=== PATIENT | female | born 1990 | race African-American/Black ===

== ENCOUNTER 2016-11-06 17:18 | Emergency (ER) | payer BC ==
[2016-11-06] MEDS ORDERED: KETOROLAC 30 MG/ML 1 ML VIAL IVP STA (18:20)
[2016-11-06] MEDS ORDERED: HYDROmorphone 1 MG/ML 1 ML SYRINGE IVP STA (18:20)
[2016-11-06] MEDS ORDERED: ONDANSETRON 4 MG/2 ML VIAL IVP STA (18:20)
[2016-11-06] MEDS ORDERED: SODIUM CHLORIDE 0.9% 1,000 ML IV STA (18:20)
--- NOTE | 2016-11-06 18:23 | ED ---
Abdominal Pain HPI - General Source: patient, RN notes reviewed Mode of arrival: wheelchair Limitations: no limitations <Coy Vee - Last Filed: 11/06/16 18:21> <Brown Bailey - Last Filed: 11/06/16 21:25> - General Chief Complaint: Abdominal Pain Stated Complaint: Abd Pain Time Seen by Provider: 11/06/16 18:17 - History of Present Illness Initial Comments: This a 25-year-old female presents emergency Department chief complaint right flank pain. Patient states she started with mid abdominal pain that started to move her right flank pain. She states she's been nauseated and vomiting. States nothing makes the pain feel better or worse. She states is constant pain. She has no history kidney stones. Patient had a right ovarian/tool mass removed in the past. Patient states that she's had no dysuria no hematuria. Patient last mental cycle 2 weeks ago no chance . Patient denies any medications taken for the pain. Patient denies any chest pain or shortness of breath. (Coy Vee) - Related Data Previous Rx's Medication Instructions Recorded Ondansetron Odt [Zofran ODT] 4 mg PO Q8HR PRN #20 tab 11/06/16 Allergies Allergy/AdvReac Type Severity Reaction Status Date / Time No Known Allergies Allergy Verified 11/06/16 19:15 Review of Systems ROS Other: All systems not noted in ROS Statement are negative. <Coy Vee - Last Filed: 11/06/16 18:21> ROS Other: All systems not noted in ROS Statement are negative. <Brown Bailey - Last Filed: 11/06/16 21:25> ROS Statement: Those systems with pertinent positive or pertinent negative responses have been documented in the HPI. Past Medical History Past Medical History: No Reported History History of Any Multi-Drug Resistant Organisms: None Reported Additional Past Surgical History / Comment(s): right fallopian tube removed Past Psychological History: No Psychological Hx Reported Smoking Status: Never smoker Past Alcohol Use History: Occasional Past Drug Use History: None Reported <Coy Vee - Last Filed: 11/06/16 18:21> General Exam Limitations: no limitations General appearance: alert, in no apparent distress Neck exam: Present: normal inspection, full ROM. Absent: tenderness, meningismus, lymphadenopathy Respiratory exam: Present: normal lung sounds bilaterally. Absent: respiratory distress, wheezes, rales, rhonchi, stridor Cardiovascular Exam: Present: regular rate, normal rhythm, normal heart sounds. Absent: systolic murmur, diastolic murmur, rubs, gallop, clicks GI/Abdominal exam: Present: soft, tenderness (Moderate right sided abdominal tenderness, mild epigastric and right flank tenderness), normal bowel sounds. Absent: distended, guarding, rebound, rigid Back exam: Present: CVA tenderness (R). Absent: CVA tenderness (L) Neurological exam: Present: alert, oriented X3, CN II-XII intact Skin exam: Present: warm, dry, intact, normal color. Absent: rash <Coy Vee - Last Filed: 11/06/16 18:21> Medical Decision Making <Coy Vee - Last Filed: 11/06/16 18:21> - Lab Data Result diagrams: 11/06/16 18:40 11/06/16 18:40 <Brown Bailey - Last Filed: 11/06/16 21:25> - Medical Decision Making Patient reexamined at this time and showing no signs of stress is resting comfortable in a stretcher. Patient's CAT scan is unremarkable for any evidence of appendicitis. There is some free fluid in the lower pelvis. No evidence of masses seen. Patient reexamined by myself and did have tenderness in the right upper quadrant. Admits to pain starting earlier today in the right side of the abdomen also right side of the back. No evidence for kidney stones. Ultrasound obtained of the right upper quadrant to rule out any evidence of cholecystitis. Normal common bile duct. No evidence of gallstones. Results were discussed with the patient. Patient advised close follow-up family doctor or GI over the next 1-2 days. Advised return if there is any fever. Advised to continue with nausea medicine at home. Patient and family Kyra bedside state understanding and agreement. (Brown Bailey) - Lab Data Lab Results 11/06/16 11/06/16 11/06/16 Range/Units 18:40 18:40 18:55 WBC 19.0 H (3.8-10.6) k/uL RBC 4.61 (3.80-5.40) m/uL Hgb 9.7 L (11.4-16.0) gm/dL Hct 32.4 L (34.0-46.0) % MCV 70.3 L (80.0-100.0) fL MCH 21.0 L (25.0-35.0) pg MCHC 29.9 L (31.0-37.0) g/dL RDW 17.4 H (11.5-15.5) % Plt Count 421 (150-450) k/uL Neutrophils % 92 % Lymphocytes % 3 % Monocytes % 4 % Eosinophils % 0 % Basophils % 0 % Neutrophils # 17.5 H (1.3-7.7) k/uL Lymphocytes # 0.6 L (1.0-4.8) k/uL Monocytes # 0.7 (0-1.0) k/uL Eosinophils # 0.1 (0-0.7) k/uL Basophils # 0.0 (0-0.2) k/uL Hypochromasia Marked Anisocytosis Slight Microcytosis Marked Sodium 137 (137-145) mmol/L Potassium 4.2 (3.5-5.1) mmol/L Chloride 105 (98-107) mmol/L Carbon Dioxide 22 (22-30) mmol/L Anion Gap 10 mmol/L BUN 12 (7-17) mg/dL Creatinine 0.85 (0.52-1.04) mg/dL Est GFR (MDRD) Af Amer >60 (>60 ml/min/1.73 sqM) Est GFR (MDRD) Non-Af >60 (>60 ml/min/1.73 sqM) Glucose 109 H (74-99) mg/dL Calcium 9.7 (8.4-10.2) mg/dL Total Bilirubin 0.7 (0.2-1.3) mg/dL AST 22 (14-36) U/L ALT 19 (9-52) U/L Alkaline Phosphatase 67 (38-126) U/L Total Protein 8.1 (6.3-8.2) g/dL Albumin 4.3 (3.5-5.0) g/dL Amylase 59 (30-110) U/L Lipase 37 (23-300) U/L Urine Color Urine Appearance (Clear) Urine pH (5.0-8.0) Ur Specific [place] (1.001-1.035) Urine Protein (Negative) Urine Glucose (UA) (Negative) Urine Ketones (Negative) Urine Blood (Negative) Urine Nitrite (Negative) Urine Bilirubin (Negative) Urine Urobilinogen (<2.0) mg/dL Ur Leukocyte Esterase (Negative) Urine HCG, Qual Not Detected (Not Detectd) 11/06/16 Range/Units 18:55 WBC (3.8-10.6) k/uL RBC (3.80-5.40) m/uL Hgb (11.4-16.0) gm/dL Hct (34.0-46.0) % MCV (80.0-100.0) fL MCH (25.0-35.0) pg MCHC (31.0-37.0) g/dL RDW (11.5-15.5) % Plt Count (150-450) k/uL Neutrophils % % Lymphocytes % % Monocytes % % Eosinophils % % Basophils % % Neutrophils # (1.3-7.7) k/uL Lymphocytes # (1.0-4.8) k/uL Monocytes # (0-1.0) k/uL Eosinophils # (0-0.7) k/uL Basophils # (0-0.2) k/uL Hypochromasia Anisocytosis Microcytosis Sodium (137-145) mmol/L Potassium (3.5-5.1) mmol/L Chloride (98-107) mmol/L Carbon Dioxide (22-30) mmol/L Anion Gap mmol/L BUN (7-17) mg/dL Creatinine (0.52-1.04) mg/dL Est GFR (MDRD) Af Amer (>60 ml/min/1.73 sqM) Est GFR (MDRD) Non-Af (>60 ml/min/1.73 sqM) Glucose (74-99) mg/dL Calcium (8.4-10.2) mg/dL Total Bilirubin (0.2-1.3) mg/dL AST (14-36) U/L ALT (9-52) U/L Alkaline Phosphatase (38-126) U/L Total Protein (6.3-8.2) g/dL Albumin (3.5-5.0) g/dL Amylase (30-110) U/L Lipase (23-300) U/L Urine Color Yellow Urine Appearance Clear (Clear) Urine pH 6.5 (5.0-8.0) Ur Specific [place] 1.016 (1.001-1.035) Urine Protein Negative (Negative) Urine Glucose (UA) Negative (Negative) Urine Ketones 2+ H (Negative) Urine Blood Negative (Negative) Urine Nitrite Negative (Negative) Urine Bilirubin Negative (Negative) Urine Urobilinogen <2.0 (<2.0) mg/dL Ur Leukocyte Esterase Negative (Negative) Urine HCG, Qual (Not Detectd) Disposition <Coy Vee - Last Filed: 11/06/16 18:21> Time of Disposition: 21:24 <Brown Bailey - Last Filed: 11/06/16 21:25> Clinical Impression: Abdominal pain Disposition: HOME SELF-CARE Condition: Good Instructions: Abdominal Pain (ED) Additional Instructions: Please use medication as discussed. Please follow-up with family doctor in the next 2 days of symptoms have not improved. Please return to emergency room if the symptoms increase or worsen or for any other concerns. Prescriptions: Ondansetron Odt [Zofran ODT] 4 mg PO Q8HR PRN #20 tab PRN Reason: Nausea Referrals: None,Stated [Primary Care Provider] - 1-2 days Ruma Chadwick MD [STAFF PHYSICIAN] - 1-2 days
[2016-11-06 19:06] LABS: Anisocytosis Slight; Basophils % (A) 0 %; CHCM 30.1; Eosinophils # (A) 0.1 k/uL (0-0.7); Eosinophils % (A) 0 %; HCT 32.4 % (34.0-46.0); HDW 3.19; HGB 9.7 gm/dL (11.4-16.0); Hypochromasia Marked; Luc # (Auto) 0.11; Luc % (Auto) 1; Lymphocytes # (A) 0.6 k/uL (1.0-4.8); Lymphocytes % (A) 3 %; MCHC 29.9 g/dL (31.0-37.0); MCV 70.3 fL (80.0-100.0); Mean Platelet Volume 6.2; Microcytosis Marked; Monocytes # (A) 0.7 k/uL (0-1.0); Monocytes % (A) 4 %; Neutrophils # (A) 17.5 k/uL (1.3-7.7); Neutrophils % (A) 92 %; RBC 4.61 m/uL (3.80-5.40); RDW 17.4 % (11.5-15.5); WBC (Perox) 20.62
[2016-11-06 19:12] LABS: ALT 19 U/L (9-52); AST 22 U/L (14-36); Alkaline Phosphatase 67 U/L (38-126); Amylase 59 U/L (30-110); Anion Gap 10 mmol/L; Blood Urea Nitrogen 12 mg/dL (7-17); Calcium 9.7 mg/dL (8.4-10.2); Carbon Dioxide 22 mmol/L (22-30); Chloride 105 mmol/L (98-107); Glucose 109 mg/dL (74-99); Non-African American GFR(MDRD) >60 (>60 ml/min/1.73 sqM); Potassium 4.2 mmol/L (3.5-5.1); Sodium 137 mmol/L (137-145); Total Bilirubin 0.7 mg/dL (0.2-1.3); Total Protein 8.1 g/dL (6.3-8.2)
[2016-11-06] MEDS ORDERED: RX INFO: IV CONTRAST WAS GIVEN 1 EACH MISC MISCELLANE PRN (19:17)
[2016-11-06 19:19] LABS: Appearance,Urine Clear (Clear); Bilirubin,Urine Negative (Negative); Glucose,Urine (UA) Negative (Negative); Ketones,Urine 2+ (Negative); Leukocyte Esterase,Urine Negative (Negative); Nitrite,Urine Negative (Negative); PH, Urine 6.5 (5.0-8.0); Protein,Urine Negative (Negative); Specific Gravity,Urine 1.016 (1.001-1.035); UA Billing (MACRO vs. MICRO) CHEM; Urobilinogen,Urine <2.0 mg/dL (<2.0)
--- NOTE | 2016-11-06 20:29 | CT ---
EXAMINATION TYPE: CT abdomen pelvis w con DATE OF EXAM: 11/06/2016 7:54 PM HISTORY: Right side abdominal pain with nausea and vomiting. CT DLP: 1704mGycm Automated Exposure Control for Dose Reduction was Utilized. CONTRAST: CT scan of the abdomen and pelvis is performed without oral but with IV Contrast, patient injected wi th 100 mL of Omnipaque 300. COMPARISON: CT abdomen and pelvis December 25, 2013 FINDINGS: LUNG BASES: Linear scarring right mid lung near diaphragm is redemonstrated. LIVER/GB: A few subcentimeter hypodense lesions scattered throughout the liver are too small to furth er characterize per presumed benign. PANCREAS: No significant abnormality is seen. SPLEEN: No significant abnormality is seen. ADRENALS: No significant abnormality is seen. 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 Visualization pass pro ximal ureter level is suboptimal to assess for complete duplication. Bladder is suboptimally distende d with bladder wall thickness upper limits of normal, a cystitis should be excluded clinically. BOWEL: Evaluation bowel is suboptimal secondary to lack of enteric contrast. No suspicious small or l arge bowel dilatation is seen. Appendix is not seen with certainty. UTERUS/ADNEXA: Uterus is anteverted in shape and within normal limits in size. Both ovaries are seen and not suspiciously enlarged, right is slightly more prominent than left. Suspect interval resection of large cystic mass with preservation of right ovary. Small to moderate moderate free fluid in pelv is on axial image 71 is nonspecific finding. LYMPH NODES: No greater than 1cm abdominal or pelvic lymph nodes are appreciated. OSSEOUS STRUCTURES: No significant abnormality is seen. OTHER: No significant additional abnormality is seen. IMPRESSION: No bowel obstruction is seen. No significant acute finding is seen to account for patient 's clinical symptoms. Small to moderate amount of free fluid in pelvis is nonspecific finding. Possib le cystitis, clinical correlation advised.
[2016-11-06 21:39] VITALS: BP 117/54; PULSE 69; RESP 16; TEMP 98.3
--- NOTE | 2016-11-06 21:59 | US ---
EXAMINATION TYPE: US abdomen limited DATE OF EXAM: 11/06/2016 9:11 PM COMPARISON: CT in PACS earlier today. CLINICAL HISTORY: Pain. Nausea, vomiting x1 day EXAM MEASUREMENTS: Liver Length: 13.5 cm Gallbladder Wall: 0.1 cm CBD: 0.5 cm Right Kidney: 9.3 x 4.0 x 4.5 cm Pancreas: Body/Tail obscured by overlying bowel gas, visualized portions show no mass Liver: Heterogeneous. Unable to visualize areas mentioned on CT report 11/06/2016 Gallbladder: wnl Evidence for sonographic Avila's sign: No CBD: wnl Right Kidney: No hydronephrosis or masses seen. There appears to be a small amount of possible free fluid visualized in Timmons's pouch Exam is suboptimal study due to patient's large body habitus. Visualized pancreas is unremarkable. Po rtions are obscured but appeared within normal limits on recent CT. Liver appears homogeneous to me w ithout worrisome intrahepatic mass or intrahepatic ductal dilatation. Gallbladder is seen without sha dowing mobile gallstones. IMPRESSION: No gallstones or ultrasound evidence for acute cholecystitis.
== END 2016-11-06 21:39 | disposition home or self-care (01) ==
LOC: EC 17:18
DX: R10.13 Epigastric pain (principal); R10.11 Right upper quadrant pain; R11.2 Nausea with vomiting, unspecified; Z98.890 Other specified postprocedural states
CPT/HCPCS: 36415; 80053; 82150; 83690; 85025; 81003; 81025; 76705; 74177; 99284; 96374; 96375 ×2; 96361; J2405; J1885; J1170; Q9967

== ENCOUNTER 2024-05-08 07:44 | Emergency (ER) | payer BC, OTHER ==
[2024-05-08 07:52] VITALS: TEMP 99.4
--- NOTE | 2024-05-08 08:12 | ED ---
General Adult HPI - General Chief complaint: Nausea/Vomiting/Diarrhea Stated complaint: ABD Pain, blurry vision Time Seen by Provider: 05/08/24 07:52 Source: patient Mode of arrival: ambulatory Limitations: no limitations - History of Present Illness Initial comments: Dictation was produced using uMentioned dictation software. please excuse any grammatical, word or spelling errors. Chief Complaint: 33-year-old female presents to the emergency department for diarrhea History of Present Illness: Patient is a 33-year-old female presents to the emergency department with diarrhea. Patient states she has been having symptoms for over a week now. She initially presented at [facility] emergency department where she was worked up. She was given GI medications. States that her symptoms did not fully improve. She follow-up with a primary care doctor prescribed antibiotics and other GI meds. States that she is still having persistent diarrhea. Patient denies ever being exposed to fecal material. She does not expose himself to livestock. No recent travel. Denies any constitutional symptoms. The ROS documented in this emergency department record has been reviewed and confirmed by me. Those systems with pertinent positive or negative responses have been documented in the HPI. All other systems are other negative and/or noncontributory. - Related Data Previous Rx's Medication Instructions Recorded Ondansetron Odt [Zofran ODT] 4 mg PO Q8HR PRN #20 tab 11/06/16 Allergies Allergy/AdvReac Type Severity Reaction Status Date / Time codeine Allergy Rash/Hives Verified 05/08/24 07:52 Review of Systems ROS Statement: Those systems with pertinent positive or pertinent negative responses have been documented in the HPI. ROS Other: All systems not noted in ROS Statement are negative. Past Medical History Past Medical History: No Reported History History of Any Multi-Drug Resistant Organisms: None Reported Additional Past Surgical History / Comment(s): right fallopian tube removed Past Psychological History: No Psychological Hx Reported Smoking Status: Never smoker Past Alcohol Use History: Occasional Past Drug Use History: None Reported General Exam - General Exam Comments Initial Comments: PHYSICAL EXAM: General Impression: Alert and oriented x3, not in acute distress HEENT: Normocephalic atraumatic, extra-ocular movements intact, pupils equal and reactive to light bilaterally, mucous membranes moist. Cardiovascular: Heart regular rate and rhythm Chest: Able to complete full sentences, no retractions, no tachypnea Abdomen: abdomen soft, non-tender, non-distended, no organomegaly Musculoskeletal: Pulses present and equal in all extremities, no peripheral edema Motor: no focal deficits noted Neurological: CN II-XII grossly intact, no focal motor or sensory deficits noted Skin: Intact with no visualized rashes Psych: Normal affect and mood Limitations: no limitations Course Vital Signs 05/08/24 07:50 Temperature 99.4 F Pulse Rate 98 Respiratory 20 Rate Blood Pressure 111/77 O2 Sat by Pulse 97 Oximetry Medical Decision Making - Medical Decision Making Was pt. sent in by a medical professional or institution (, PA, SURVEY FIELD TECHNICIAN, urgent care, hospital, or usp...) When possible be specific @ -No Did you speak to anyone other than the patient for history (EMS, parent, family, police, friend...)? What history was obtained from this source @ -No Did you review nursing and triage notes (agree or disagree)? Why? @ -I reviewed and agree with nursing and triage notes Were old charts reviewed (outside hosp., previous admission, EMS record, old EKG, old radiological studies, urgent care reports/EKG's, usp records)? Report findings @ -No old charts were reviewed Differential Diagnosis (chest pain, altered mental status, abdominal pain women, abdominal pain men, vaginal bleeding, musculoskeletal, weakness, fever, dyspnea, syncope, headache, dizziness, GI bleed, back pain, seizure, CVA, palpatations, mental health)? @ -Colitis, inflammatory bowel disease, infectious colitis EKG interpreted by me (3pts min.). @ -None done X-rays interpreted by me (1pt min.). @ -None done CT interpreted by me (1pt min.). @ -CT of the abdomen pelvis shows pancolitis. There is incidental finding of uterine mass likely fibroid. U/S interpreted by me (1pt. min.). @ -None done What testing was considered but not performed or refused? (CT, X-rays, U/S, labs)? Why? @ -None What meds were considered but not given or refused? Why? @ -None Was smoking cessation discussed for >3mins.? @ -No Were there social determinants of health that impacted care today? How? (Homelessness, low income, unemployed, alcoholism, drug addiction, transportation, low edu. Level, literacy, decrease access to med. care, halfway, rehab)? @ -No Was there de-escalation of care discussed even if they declined (Discuss DNR or withdrawal of care, Hospice)? DNR status @ -No What co-morbidities impacted this encounter? (DM, HTN, Smoking, COPD, CAD, Cancer, CVA, ARF, Chemo, Hep., AIDS, mental health diagnosis, sleep apnea, morbid obesity)? @ -None Was patient admitted / discharged? Hospital course, mention meds given and route, prescriptions, significant lab abnormalities, going to OR and other pertinent info. @ -33-year-old female presents to the emergency department with protracted diarrhea. Vital signs upon arrival are within acceptable limits. Patient is soft abdomen. Laboratory evaluation obtained. Leukocytosis 14.0. Slight a cidosis likely secondary to dehydration. Viral testing negative. Urine hCG is negative. CT scan shows likely infectious etiology. Patient already currently on medications including antibiotics. Patient was notified of fibroid/pelvic mass incidentally found on her CT she is told to follow-up with her primary care doctor regarding that. She states she has an appointment coming up. Disposition options were discussed. Patient agreeable for discharge. She is told to follow-up closely with primary care doctor. Patient pending stool culture. Did you discuss the management of the patient with other professionals (professionals i.e. , PA, SURVEY FIELD TECHNICIAN, lab, RT, psych nurse, professor of social work, souvenir and novelty maker, teacher, civil preparedness training officer, outsole caser)? Give summary @ -No Was critical care preformed (if so, how long)? @ -No Undiagnosed new problem with uncertain prognosis? @ -No Drug Therapy requiring intensive monitoring for toxicity (Heparin, Nitro, Insulin, Cardizem)? @ -No Were any procedures done? @ -No Diagnosis/symptom? Acute, or Chronic, or Acute on Chronic? Uncomplicated (without systemic symptoms) or Complicated (systemic symptoms)? @ -Diarrhea Side effects of treatment? @ -No Exacerbation, Progression, or Severe Exacerbation? @ -No Poses a threat to life or bodily function? How? (Chest pain, [place], NH, pneumonia, PE, COPD, DKA, ARF, appy, cholecystitis, CVA, Diverticulitis, Homicidal, Suicidal, threat to staff... and all critical care pts) @ -yes - Lab Data Result diagrams: 11/01/24 08:33 05/08/24 08:33 Lab Results 05/08/24 05/08/24 05/08/24 Range/Units 08:33 08:33 08:33 WBC 14.0 H (3.8-10.6) k/uL RBC 5.32 (3.80-5.40) m/uL Hgb 13.1 (11.4-16.0) gm/dL Hct 43.0 (34.0-46.0) % MCV 80.9 (80.0-100.0) fL MCH 24.7 L (25.0-35.0) pg MCHC 30.5 L (31.0-37.0) g/dL RDW 21.6 H (11.5-15.5) % Plt Count 420 (150-450) k/uL MPV 6.9 Neutrophils % 82 % Lymphocytes % 7 % Monocytes % 6 % Eosinophils % 1 % Basophils % 0 % Neutrophils # 11.5 H (1.3-7.7) k/uL Lymphocytes # 1.0 (1.0-4.8) k/uL Monocytes # 0.9 (0-1.0) k/uL Eosinophils # 0.2 (0-0.7) k/uL Basophils # 0.1 (0-0.2) k/uL Anisocytosis Moderate Microcytosis Moderate Sodium 136 L (137-145) mmol/L Potassium 4.1 (3.5-5.1) mmol/L Chloride 102 (98-107) mmol/L Carbon Dioxide 19 L (22-30) mmol/L Anion Gap 15 mmol/L BUN 4 L (7-17) mg/dL Creatinine 0.90 (0.52-1.04) mg/dL Est GFR (CKD-EPI)AfAm >90 (>60 ml/min/1.73 sqM) Est GFR (CKD-EPI)NonAf 84 (>60 ml/min/1.73 sqM) Glucose 99 (74-99) mg/dL Calcium 9.1 (8.4-10.2) mg/dL Urine HCG, Qual Not Detected (Not Detectd) Influenza Type A (PCR) (Not Detectd) Influenza Type B (PCR) (Not Detectd) RSV (PCR) (Not Detectd) SARS-CoV-2 (PCR) (Not Detectd) 05/08/24 Range/Units 08:33 WBC (3.8-10.6) k/uL RBC (3.80-5.40) m/uL Hgb (11.4-16.0) gm/dL Hct (34.0-46.0) % MCV (80.0-100.0) fL MCH (25.0-35.0) pg MCHC (31.0-37.0) g/dL RDW (11.5-15.5) % Plt Count (150-450) k/uL MPV Neutrophils % % Lymphocytes % % Monocytes % % Eosinophils % % Basophils % % Neutrophils # (1.3-7.7) k/uL Lymphocytes # (1.0-4.8) k/uL Monocytes # (0-1.0) k/uL Eosinophils # (0-0.7) k/uL Basophils # (0-0.2) k/uL Anisocytosis Microcytosis Sodium (137-145) mmol/L Potassium (3.5-5.1) mmol/L Chloride (98-107) mmol/L Carbon Dioxide (22-30) mmol/L Anion Gap mmol/L BUN (7-17) mg/dL Creatinine (0.52-1.04) mg/dL Est GFR (CKD-EPI)AfAm (>60 ml/min/1.73 sqM) Est GFR (CKD-EPI)NonAf (>60 ml/min/1.73 sqM) Glucose (74-99) mg/dL Calcium (8.4-10.2) mg/dL Urine HCG, Qual (Not Detectd) Influenza Type A (PCR) Not Detected (Not Detectd) Influenza Type B (PCR) Not Detected (Not Detectd) RSV (PCR) Not Detected (Not Detectd) SARS-CoV-2 (PCR) Not Detected (Not Detectd) Disposition Clinical Impression: Diarrhea Disposition: HOME SELF-CARE Instructions (If sedation given, give patient instructions): Acute Diarrhea (ED) Is patient prescribed a controlled substance at d/c from ED?: No Referrals: Ruma Chadwick MD [STAFF PHYSICIAN] - 1-2 days Gabriele Renner DO [Primary Care Provider] - 1-2 days Time of Disposition: 11:00
[2024-05-08] MEDS: SODIUM CHLORIDE 0.9% 1,000 ML IV STA (08:38)
[2024-05-08 08:45] LABS: Anisocytosis Moderate; Basophils # (A) 0.1 k/uL (0-0.2); Basophils % (A) 0 %; Eosinophils # (A) 0.2 k/uL (0-0.7); Eosinophils % (A) 1 %; HGB 13.1 gm/dL (11.4-16.0); Lymphocytes % (A) 7 %; MCH 24.7 pg (25.0-35.0); MCHC 30.5 g/dL (31.0-37.0); MCV 80.9 fL (80.0-100.0); Mean Platelet Volume 6.9; Microcytosis Moderate; Monocytes # (A) 0.9 k/uL (0-1.0); Monocytes % (A) 6 %; Neutrophils # (A) 11.5 k/uL (1.3-7.7); Neutrophils % (A) 82 %; Platelet Count 420 k/uL (150-450); RBC 5.32 m/uL (3.80-5.40); RDW 21.6 % (11.5-15.5)
[2024-05-08 08:54] LABS: African American GFR (CKD) >90 (>60 ml/min/1.73 sqM); Anion Gap 15 mmol/L; Blood Urea Nitrogen 4 mg/dL (7-17); Calcium 9.1 mg/dL (8.4-10.2); Carbon Dioxide 19 mmol/L (22-30); Chloride 102 mmol/L (98-107); Glucose 99 mg/dL (74-99); Non-African American GFR(CKD) 84 (>60 ml/min/1.73 sqM); Sodium 136 mmol/L (137-145)
[2024-05-08 08:56] LABS: Potassium 4.1 mmol/L (3.5-5.1)
--- NOTE | 2024-05-08 10:16 | CT ---
EXAMINATION TYPE: CT abdomen pelvis w con DATE OF EXAM: 05/08/2024 9:23 AM COMPARISON: 11/06/2016 CLINICAL INDICATION: Female, 33 years old with history of abdominal pain, diarrhea, lt lower abd pain , TECHNIQUE: Contiguous axial scanning of the abdomen and pelvis following administration of 100 ml Iso emily 300 IV contrast. Delayed images through the kidneys and coronal/sagittal reconstructions perform ed. CT DLP: 1855 mGycm, Automated exposure control for dose reduction was used. FINDINGS: The heart is normal size without pericardial effusion. Strandy atelectasis in the lower amy gs without pleural effusion. Liver mildly enlarged at 18.1 cm. No focal liver lesion or biliary ductal dilatation. Portal venous s ystem is patent. Gallbladder, adrenal glands, kidneys, spleen, pancreas within normal limits. No dilated small bowel or free air. Mild pelvic free fluid is noted. Surgical material at the inferior cecum probably relating to prior appendectomy. There is moderate in flammatory wall thickening extending throughout most of the colon. Areas of greater wall thickening a long the right side of the colon show mild pericolonic fat stranding and edema. Enlarged 1.4 cm lymph node right mid abdominal upper abdomen probably reactive. Moderate circumferential bladder wall thickening. There appears to be a possible solid mass adjacent to the left posterior lower uterine segment measur ing 7.9 x 5.8 x 4.4 cm. Not seen on 11/06/2016. The left ovary appears to be adjacent. Right ovary seen more superiorly. No pelvic lymphadenopathy. Bones: No osseous destructive process. IMPRESSION: 1. PANCOLITIS WITH MODERATE INFLAMMATION. CORRELATE FOR INFECTIOUS CAUSES OR INFLAMMATORY BOWEL DISEA SE. NO ABSCESS OR FREE AIR. 2. THE APPEARANCE OF A SOLID MASS MEASURING 7.9 X 5.8 X 4.4 CM IN THE POSTERIOR LEFT CUL-DE-SAC ABUTT ING THE UTERUS. NOT SEEN IN 2017. THE LEFT OVARY APPEARS TO BE LOCATED JUST ADJACENT. POSSIBLE NEW EX OPHYTIC SUBSEROSAL UTERINE FIBROID THAT HAS DEVELOPED. A SOLID MASS OF THE LEFT OVARY IS FELT LESS LI PADMINI. RECOMMEND FURTHER PELVIC ULTRASOUND EVALUATION AND COLOR DOPPLER TO ASSESS FOR BRIDGING VESSEL SIGN. 3. A mildly enlarged 1.4 cm mid mesenteric lymph node likely reactive. 4. Mild hepatomegaly with at least mild hepatic steatosis. [facility], , 05/08/2024 10:14 AM
[2024-05-08 14:05] VITALS: BP 122/78; PULSE 65; RESP 18
== END 2024-05-08 13:45 | disposition home or self-care (01) ==
LOC: EC 07:44
DX: K51.00 Ulcerative (chronic) pancolitis without complications (principal); Z88.5 Allergy status to narcotic agent
CPT/HCPCS: 36415; 80048; 85025; 81025; 87636; 74177; 99284; 96360; Q9967